=== PATIENT | female | born 1995 ===

== ENCOUNTER 2021-11-21 09:27 | Emergency (ER) | payer OTHER ==
[2021-11-21] MEDS ORDERED: Polyethylene Glycol 3350 Powder 17 GM Packet PO ONE (10:25)
[2021-11-21] MEDS ORDERED: Bisacodyl 10 MG Supp RECTAL ONE (10:26)
[2021-11-21 11:06] LABS: BLOOD UREA NITROGEN,BUN 6 mg/dL (7.0-18.0); CARBON DIOXIDE,CO2 24.5 mmol/L (21.0-32.0); CHLORIDE,CL 104 mmol/L (98-107); GLUCOSE RANDOM 95 mg/dL (74-106); LIPASE 81 U/L (73-393); POTASSIUM,K 3.8 mmol/L (3.5-5.1); SODIUM,NA 137 mmol/L (136-145)
== END 2021-11-21 11:50 | disposition home or self-care (01) ==
LOC: MW.ED 09:27
DX: K59.00 Constipation, unspecified (principal)
CPT/HCPCS: 36415; 80053; 83690; 84703; 85025; 99283; A9270

== ENCOUNTER 2023-04-13 21:36 | Emergency (ER) | payer BC, OTHER ==
[2023-04-13 22:30] LABS: APPEARANCE,URINE CLEAR; BILIRUBIN,URINE NEGATIVE (NEGATIVE); COLOR,URINE YELLOW; GLUCOSE,URINE NEGATIVE (NEGATIVE); KETONES,URINE 40 mg/dL (NEGATIVE); LEUKOCYTE ESTERASE,URINE NEGATIVE (NEGATIVE); NITRITE,URINE NEGATIVE (NEGATIVE); OCCULT BLOOD,URINE NEGATIVE (NEGATIVE); PROTEIN,URINE NEGATIVE (NEGATIVE); UROBILINOGEN,URINE 0.2 EU/dL (<2.0)
[2023-04-13 22:52] LABS: BASOPHILS PERCENT AUTO 0.3 % (0.0-1.5); EOSINOPHILS ABSOLUTE AUTO 0.1 K/uL (0.0-0.7); EOSINOPHILS PERCENT AUTO 0.9 % (0.0-7.0); HEMATOCRIT 37.3 % (36.0-46.0); HEMOGLOBIN 12.8 g/dL (12.0-16.0); LYMPHOCYTES ABSOLUTE AUTO 2.2 K/uL (0.6-2.4); LYMPHOCYTES PERCENT AUTO 23.5 % (16.0-40.0); MEAN CORPUSCULAR HGB CONC 34.3 g/dL (31.0-37.0); MEAN CORPUSCULAR VOLUME 87.6 fL (80.0-98.0); MONOCYTES ABSOLUTE AUTO 0.6 K/uL (0.0-0.8); MONOCYTES PERCENT AUTO 6.5 % (0.0-15.0); NEUTROPHILS ABSOLUTE AUTO 6.3 K/uL (1.4-5.7); NEUTROPHILS PERCENT AUTO 68.8 % (48.0-80.0); NRBC ABSOLUTE 0 K/uL; PLATELET COUNT,PLT 231 K/uL (150-400); RED BLOOD CELL COUNT 4.26 M/uL (4.30-5.90); WHITE BLOOD CELL COUNT,WBC 9.13 K/uL (4.0-11.0)
[2023-04-13] MEDS ORDERED: Acetaminophen 325 MG Tab PO ONE (23:10)
[2023-04-13] MEDS ORDERED: Lactated Ringers 1,000 ML IV SCH (23:30)
[2023-04-13 23:45] LABS: ALBUMIN 3.8 g/dL (3.4-5.0); BILIRUBIN TOTAL 0.2 mg/dL (0.2-1.0); CARBON DIOXIDE,CO2 26.6 mmol/L (21.0-32.0); CREATININE 0.7 mg/dL (0.6-1.0); EST CRCL DRUG DOSING (CG) 110.55 mL/min; POTASSIUM,K 3.2 mmol/L (3.5-5.1); PROTEIN TOTAL,TP 7.5 g/dL (6.4-8.2)
== END 2023-04-14 01:37 | disposition home or self-care (01) ==
LOC: MW.ED 21:36
DX: O99.891 Other specified diseases and conditions complicating pregnancy (principal); R10.2 Pelvic and perineal pain; Z3A.08 8 weeks gestation of pregnancy; Z79.899 Other long term (current) drug therapy
CPT/HCPCS: 36415; 76817; 80053; 81003; 83690; 84702; 85025; 99284; A9270; 99283

== ENCOUNTER 2024-12-26 09:03 | Day surgery (SDC) | payer BC ==
[~2024-12-26 09:03] MED LIST: Sodium Chloride 0.9% 10 ML Syringe FLUSH PRN; Sodium Chloride 0.9% 2.5 ML Syringe FLUSH PRN; Sodium Chloride 0.9% 20 ML SDV IV PRN
[2024-12-26] MEDS: Lactated Ringers 1,000 ML IV SCH (09:49)
[2024-12-26] MEDS ORDERED: Lidocaine 2% 5 ML SDV ONE (11:01)
[2024-12-26] MEDS ORDERED: Propofol 200 MG/20 ML SDV ONE ×2 (11:01→11:29)
== END 2024-12-26 12:45 | disposition home or self-care (01) ==
LOC: MW.SDS 09:03
PROVIDERS: ATTEND Surgery
DX: K59.09 Other constipation (principal); Z79.899 Other long term (current) drug therapy
CPT/HCPCS: 45380; 81025; J2003; J2704; J7120; 00811

== ENCOUNTER 2025-05-09 03:28 | Emergency (ER) | payer BC | END 2025-05-09 04:05 | disposition home or self-care (01) | LOC: MW.ED 03:28 | DX: N64.4 Mastodynia (principal); Z79.899 Other long term (current) drug therapy | CPT/HCPCS: 99282; 99283 ==